=== PATIENT | female | born 1950 | race Caucasian/White ===

== ENCOUNTER 2023-03-10 10:30 | Day surgery (SDC) | payer MEDICARE, OTHER ==
[~2023-03-10] VITALS: Ht 152.4 cm; Wt 56.1 kg
[~2023-03-10 10:30] MED LIST: BSS IRRIG/VANCO(10MG)/TOBRA(5MG)/EPINEPH(1:1000-0.5CC)500ML BAG-ORONLY IR ONE; CALT1TAB PO; CALTTAB6 PO; CEFUROXIME 1MG/0.1ML INTRACAMERAL INJ As Ordered ONE; CYCLOPENTOLATE 1% OPHTH SOLN 2ML BTL OD SCH; DIAL1WAF PO; FISH1000 PO; LIDOCAINE 1% SDV 5ML VIAL As Ordered ONE; LIDOCAINE 3.5 % 1ML OPHTH TOPICAL GEL OU ONE; OFLOXACIN 0.3 % (OCUFLOX) OPTH SOL 5ML OD ONE; OMEG10002 PO; PHENYLEPHRINE 10% OPHTH SOL 5ML OD PRN; PHENYLEPHRINE 2.5% OPHTH SOL 2ML OD SCH; SIMV20TA22 PO; THERTAB52 PO; TRAV2.5D; TROPICAMIDE 1% OPHTH SOLN 15ML OD SCH
[2023-03-10] MEDS ORDERED: MIDAZOLAM INJ 2MG/2ML VIAL As Ordered ONE (11:16)
[2023-03-10] MEDS ORDERED: fentaNYL 100 MCG/2 ML INJECTION As Ordered ONE (11:16)
[2023-03-10 13:25] VITALS: BP 138/68; TEMP 98.1; O2SAT 98
== END 2023-03-10 13:48 | disposition home or self-care (01) ==
LOC: M SDC 10:30
PROVIDERS: ATTEND Ophthalmology
DX: H25.11 Age-related nuclear cataract, right eye (principal); Z79.899 Other long term (current) drug therapy; E78.00 Pure hypercholesterolemia, unspecified; Z88.8 Allergy status to other drugs, medicaments and biological substances
CPT/HCPCS: 66984; 92015; J0697; J2250; J3010; V2788

== ENCOUNTER 2023-04-21 10:23 | Day surgery (SDC) | payer MEDICARE, OTHER ==
[~2023-04-21] VITALS: Ht 152.4 cm; Wt 55.8 kg
[~2023-04-21 10:23] MED LIST changes: -CEFUROXIME 1MG/0.1ML INTRACAMERAL INJ As Ordered ONE; -CYCLOPENTOLATE 1% OPHTH SOLN 2ML BTL OD SCH; +CYCLOPENTOLATE 1% OPHTH SOLN 2ML BTL OS SCH; -LIDOCAINE 1% SDV 5ML VIAL As Ordered ONE; +MIDAZOLAM INJ 2MG/2ML VIAL As Ordered ONE; -OFLOXACIN 0.3 % (OCUFLOX) OPTH SOL 5ML OD ONE; +OFLOXACIN 0.3 % (OCUFLOX) OPTH SOL 5ML OS ONE; -PHENYLEPHRINE 10% OPHTH SOL 5ML OD PRN; +PHENYLEPHRINE 10% OPHTH SOL 5ML OS PRN; -PHENYLEPHRINE 2.5% OPHTH SOL 2ML OD SCH; +PHENYLEPHRINE 2.5% OPHTH SOL 2ML OS SCH; -TROPICAMIDE 1% OPHTH SOLN 15ML OD SCH; +TROPICAMIDE 1% OPHTH SOLN 15ML OS SCH
[2023-04-21] MEDS: LIDOCAINE 3.5 % 1ML OPHTH TOPICAL GEL OU ONE (11:01)
[2023-04-21] MEDS: CYCLOPENTOLATE 1% OPHTH SOLN 2ML BTL OS SCH (11:01)
[2023-04-21] MEDS: PHENYLEPHRINE 2.5% OPHTH SOL 2ML OS SCH (11:01)
[2023-04-21] MEDS: TROPICAMIDE 1% OPHTH SOLN 15ML OS SCH (11:01)
[2023-04-21] MEDS: OFLOXACIN 0.3 % (OCUFLOX) OPTH SOL 5ML OS ONE (11:01)
[2023-04-21] MEDS: LIDOCAINE 1% SDV 5ML VIAL As Ordered ONE (11:56)
[2023-04-21] MEDS: BSS IRRIG/VANCO(10MG)/TOBRA(5MG)/EPINEPH(1:1000-0.5CC)500ML BAG-ORONLY As Ordered ONE (11:56)
[2023-04-21] MEDS: CEFUROXIME 1MG/0.1ML INTRACAMERAL INJ As Ordered ONE (11:56)
[2023-04-21 12:45] VITALS: BP 139/63; TEMP 97.5; O2SAT 100
== END 2023-04-21 12:50 | disposition home or self-care (01) ==
LOC: M SDC 10:23
PROVIDERS: ATTEND Ophthalmology
DX: H25.12 Age-related nuclear cataract, left eye (principal); E78.5 Hyperlipidemia, unspecified; Z79.899 Other long term (current) drug therapy; Z88.8 Allergy status to other drugs, medicaments and biological substances
CPT/HCPCS: 66984; 92015; J0697; J2250; V2788